=== PATIENT | female | born 1975 | race Caucasian/White ===

== ENCOUNTER 2021-10-23 23:33 | Emergency (ER) | payer BC ==
--- NOTE | 2021-10-24 00:44 | ER ---
Nurse's Notes [facility] Name: Elizabeth Jackson Age: 45 yrs Sex: Female : 1975 Arrival Date: 10/23/2021 Time: 23:35 Bed Waiting Private MD: Diagnosis: Presentation: 10/24 00:43 Chief complaint: Patient states: Left at 0025. tw5 ED Course: 10/23 23:35 Patient arrived in ED. am2 Administered Medications: No medications were administered Outcome: 10/24 00:43 Patient left the ED. tw5 Signatures: Jess Villalta am2 Marian Mancilla tw5
== END 2021-10-24 00:43 | disposition left against medical advice (07) ==
LOC: ER 23:33
DX: Z53.21 Procedure and treatment not carried out due to patient leaving prior to being seen by health care provider (principal)
CPT/HCPCS: 99281